=== PATIENT | male | born 1965 | race Caucasian/White ===

== ENCOUNTER 2023-07-05 15:08 | Emergency (ER) | payer MEDICAID ==
[~2023-07-05] VITALS: Ht 165.1 cm; Wt 91.0 kg
[2023-07-05 15:21] VITALS: BP 114/86; PULSE 90; RESP 18; TEMP 98.6; O2SAT 100
[2023-07-05 16:17] LABS: EOSINOPHILS % 2.4 % (0.0-5.0); HEMATOCRIT. 43.7 % (42.0-52.0); HEMOGLOBIN. 14.9 g/dL (14.0-18.0); LYMPHOCYTES % 32.8 % (20.0-50.0); MEAN CORPUSCULAR HEMOGLOBIN 29.9 pg (28.0-32.0); MEAN CORPUSCULAR VOLUME 87.8 fL (80.0-94.0); MEAN PLATELET VOLUME 9.4 fl (7.4-10.4); NEUTROPHILS % 53.8 % (40.0-76.0); PLATELET 263 x1000/uL (130-400); RED BLOOD CELL COUNT 4.97 mill/uL (4.7-6.1); RED CELL DISTRIBUTION WIDTH 14.9 % (11.6-14.6); WHITE BLOOD COUNT 7.1 x1000/uL (4.5-11.0)
[2023-07-05 16:25] LABS: PROTHROMBIN TIME 11.2 sec (9.6-11.0)
[2023-07-05 16:27] LABS: ALANINE AMINOTRANSFERASE 36 IU/L (10-49); ASPARTATE AMINOTRANSFERASE 16 IU/L (<34); BILIRUBIN TOTAL 0.6 mg/dL (0.1-1.0); CALCIUM 9.1 mg/dL (8.7-10.4); CARBON DIOXIDE 27 mEq/L (21-32); CHLORIDE 106 mEq/L (98-107); CREATININE 1.2 mg/dL (0.6-1.3); GLUCOSE 272 mg/dL (70-105); POTASSIUM 4.5 mEq/L (3.5-5.1); SODIUM 137 mEq/L (136-145); TROPONIN I HIGH SENSITIVITY 49 ng/L (3.0-53); UREA NITROGEN BLOOD 19 mg/dL (9-23)
== END 2023-07-05 21:47 | disposition left against medical advice (07) ==
LOC: ER 15:08
DX: R06.02 Shortness of breath (principal); Z53.21 Procedure and treatment not carried out due to patient leaving prior to being seen by health care provider
CPT/HCPCS: 36415; 71045; 80053; 84484; 85025; 93005; 99281